=== PATIENT | male | born 1950 | race Caucasian/White ===

== ENCOUNTER → 2017-04-29 07:59 | Outpatient (POV) | payer BC, MEDICARE, SELFPAY | PROVIDERS: Visit Provider Dentist | DX: Z00.00 Encounter for general adult medical examination without abnormal findings (principal) ==

== ENCOUNTER → 2017-06-10 08:16 | Outpatient (POV) | payer BC, MEDICARE, SELFPAY | PROVIDERS: Visit Provider Dentist | DX: Z00.00 Encounter for general adult medical examination without abnormal findings (principal) ==

== ENCOUNTER → 2017-06-21 08:15 | Outpatient (POV) | payer BC, MEDICARE, SELFPAY | PROVIDERS: Visit Provider Nurse Practitioner Acute Care | DX: Z00.00 Encounter for general adult medical examination without abnormal findings (principal) ==

== ENCOUNTER → 2017-06-30 15:49 | Outpatient (POV) | payer BC, MEDICARE, SELFPAY | DX: Z00.00 Encounter for general adult medical examination without abnormal findings (principal) ==

== ENCOUNTER → 2017-10-21 10:41 | Outpatient (POV) | payer BC, MEDICARE, SELFPAY | PROVIDERS: Visit Provider Dermatology | DX: Z00.00 Encounter for general adult medical examination without abnormal findings (principal) ==

== ENCOUNTER → 2017-11-24 15:55 | Outpatient (POV) | payer BC, MEDICARE, SELFPAY | DX: Z00.00 Encounter for general adult medical examination without abnormal findings (principal) ==

== ENCOUNTER → 2017-12-29 16:19 | Outpatient (POV) | payer BC, MEDICARE, SELFPAY | DX: Z00.00 Encounter for general adult medical examination without abnormal findings (principal) ==

== ENCOUNTER → 2017-12-30 09:30 | Outpatient (CLI) | payer BC, MEDICARE, SELFPAY ==
--- NOTE | 2017-12-30 | CI_ITS ---
Cerebrovascular Exam IMPRESSIONS 1. The bilateral vertebral arteries are patent with normal antegrade flow. 2. Study suggests less than 20% stenosis involving the right internal carotid artery and the left internal carotid artery. No change from the study of 01-Oct-2011. History: Risk factors: Hypertension. Hyperlipidemia. Scotoma. Carotid duplex study. Complete study and Doppler flow study including spectral analysis, color and de luna scale imaging. Height: Height: 177.8cm. Height: 70in. Weight: Weight: 85.3kg. Weight: 187.6lb. Body mass index: BMI: 27kg/m^2. Body surface area: BSA: 2.07m^2. Location: Vascular laboratory. Patient status: Outpatient. Tables: Arterial flow: + +--------+--------+ Location V sys V ed + +--------+--------+ Right CCA - proximal 133cm/s 24.4cm/s + +--------+--------+ Right CCA - distal 119cm/s 22.8cm/s + +--------+--------+ Right ECA 118cm/s -------- + +--------+--------+ Right ICA - proximal 65.4cm/s 16.3cm/s + +--------+--------+ Right ICA - mid 83cm/s 26.4cm/s + +--------+--------+ Right ICA - distal 64.8cm/s 18.2cm/s + +--------+--------+ Right vertebral 64.9cm/s -------- + +--------+--------+ Left CCA - proximal 113cm/s 16.8cm/s + +--------+--------+ Left CCA - distal 123cm/s 25.1cm/s + +--------+--------+ Left ECA 122cm/s -------- + +--------+--------+ Left ICA - proximal 91.5cm/s 29.3cm/s + +--------+--------+ Left ICA - mid 91.5cm/s 25.1cm/s + +--------+--------+ Left ICA - distal 91.3cm/s 26.6cm/s + +--------+--------+ Left vertebral 55.4cm/s -------- + +--------+--------+ Velocity ratios: + + + + + + Right, V sys Right, V ed Left, V sys Left, V ed + + + + + + Max ICA/dist CCA 0.7 1.16 0.74 1.17 + + + + + + (Report amended ) Electronically signed by: Tito Lei [id number]
== END ==
PROVIDERS: PCP Family Medicine; Visit Provider Family Medicine
DX: R42 Dizziness and giddiness (principal); I11.9 Hypertensive heart disease without heart failure
CPT/HCPCS: 93880

== ENCOUNTER → 2018-07-13 17:27 | Outpatient (POV) | payer BC, MEDICARE, SELFPAY | DX: Z00.00 Encounter for general adult medical examination without abnormal findings (principal) ==

== ENCOUNTER → 2019-01-26 08:56 | Outpatient (POV) | payer BC, MEDICARE, SELFPAY | PROVIDERS: Visit Provider Dentist | DX: Z00.00 Encounter for general adult medical examination without abnormal findings (principal) ==

== ENCOUNTER → 2019-03-27 08:10 | Outpatient (POV) | payer BC, MEDICARE, SELFPAY | PROVIDERS: Visit Provider Nurse Practitioner Family | DX: Z00.00 Encounter for general adult medical examination without abnormal findings (principal) ==

== ENCOUNTER → 2019-03-28 08:07 | Outpatient (POV) | payer BC, MEDICARE, SELFPAY | PROVIDERS: Visit Provider Dermatology | DX: Z00.00 Encounter for general adult medical examination without abnormal findings (principal) ==

== ENCOUNTER → 2019-09-26 10:16 | Outpatient (CLI) | payer BC, SELFPAY ==
--- NOTE | 2019-09-26 10:24 | US_ITS ---
PROCEDURE: US KIDNEY CLINICAL INDICATION: HTN COMPARISON: [facility] CT CHEST W/O CONTRAST from 05/11/2013 FINDINGS: The right kidney is 12 x 6 x 6 cm. No hydronephrosis. There are 2 right renal cyst 1 in the lower pole at 4 cm the other in the mid polar region at 1.7 cm. The left kidney is 11 x 6 x 5 cm. No cyst or hydronephrosis. No obvious mass. There may be some cortical scarring along the lower pole of the left kidney. IMPRESSION: No hydronephrosis. Benign-appearing right renal cyst. Possible mild cortical scarring along the lower pole of the left kidney Dictated by: Tito Lei MD 09/26/2019 11:25 Electronically signed by Tito Lei MD in [place] 09/26/2019 11:25
--- NOTE | 2019-09-26 10:24 | US_ITS ---
PROCEDURE: US THYROID CLINICAL INDICATION: GOITER COMPARISON: THY US THYROID from 04/10/2016 FINDINGS: Right lobe: Right lobe is 4.7 x 2 x 1.5 cm. There is a 4 mm hypoechoic nodule in the mid aspect of the right lobe medially. Previously 6 mm. In the lower pole there is a well-circumscribed 10 mm hypoechoic nodule which is unchanged Left lobe: 4.1 x 1.6 x 1.4 cm. There is a vague 4 mm hypoechoic nodule in the mid aspect of the left lobe unchanged. A 4 mm hypoechoic nodule noted in the mid polar region unchanged Isthmus: Unremarkable Additional findings: No new nodules evident IMPRESSION: Enlarged thyroid gland with bilateral stable nodules. Dictated by: Tito Lei MD 09/27/2019 11:56 Electronically signed by Tito Lei MD in [place] 09/27/2019 11:56
== END ==
PROVIDERS: PCP Family Medicine; Visit Provider Nurse Practitioner Family
DX: E04.9 Nontoxic goiter, unspecified (principal); I10 Essential (primary) hypertension
CPT/HCPCS: 76536; 76770

== ENCOUNTER → 2019-11-30 14:06 | Outpatient (CLI) | payer BC, SELFPAY ==
--- NOTE | 2019-11-30 14:18 | ECG_ITS ---
APPROVED REPORT Exam: Resting ECG HR:62 bpm ECG Measurements Heart Rate 62 AXES MN 172 P 37 QRSd 94 QRS 62 QT 408 T 50 QTc 414 <Conclusion> Normal sinus rhythm Normal ECG Electronically signed by : Alvino De La Torre, 12/01/2019 07:51:51
== END ==
PROVIDERS: PCP Family Medicine; Visit Provider Physician Assistant
DX: I49.49 Other premature depolarization (principal)
CPT/HCPCS: 93005

== ENCOUNTER → 2019-12-21 10:01 | Outpatient (CLI) | payer BC, SELFPAY ==
[2019-12-21 12:02] LABS: Anion Gap 13.1 mEq/L (5-15); Blood Urea Nitrogen 15 mg/dl (9-20); Calcium 9.2 mg/dl (8.4-10.2); Carbon Dioxide 29 mmol/L (22.0-30.0); Chloride 99 mmol/L (98-107); Estimated Glomerular Filt Rate 60 ml/min (>60); GFR (African American) 73 ML/MIN (>60); Glucose 115 mg/dl (74-100); Potassium 4.1 mmoL/L (3.5-5.1); Sodium 137 mmol/L (136-145)
[2019-12-21 12:11] LABS: NT Pro Brain Natriuretic Pep. 78.1 pg/mL (0-125)
== END ==
PROVIDERS: PCP Family Medicine; Visit Provider Internal Medicine Cardiovascular Disease
DX: R06.00 Dyspnea, unspecified (principal); R07.89 Other chest pain; R00.2 Palpitations; I10 Essential (primary) hypertension; I25.10 Atherosclerotic heart disease of native coronary artery without angina pectoris; R40.0 Somnolence; E78.5 Hyperlipidemia, unspecified; I49.9 Cardiac arrhythmia, unspecified
CPT/HCPCS: 36415; 80048; 83880; G0399

== ENCOUNTER → 2019-12-28 07:49 | Outpatient (CLI) | payer BC, SELFPAY ==
--- NOTE | 2019-12-28 | CA_ITS ---
APPROVED REPORT EXAM: Comprehensive 2D, Doppler, and color-flow Echocardiogram Magazine Filler: Alicia Tellez CRT Ht: 5 ft 10 in Wt: 192lbs BSA: 2.05 BP: 145/86 mmHg Indications: Chest Pain, Palpitations, Fatigue, CAD, Hyperlipidemia, Hypertension/HDD 2D Dimensions LVOT 1.84 cm (M/F) 1.5-2.5 M-Mode Dimensions RVDd 2.84 cm (0.9-2.6) LVDd 4.43 cm (3.5-5.7) LVDs 2.99 cm (3.5-5.7) IVSd 1.25 cm (0.6-1.1) PWd 1.10 cm (0.6-1.1) EF (Teich) 61.10% FS 32.50% EDV (Teich) 89.10 mL ESV (Teich) 34.70 mL LV Diastology E/A Ratio 1.17 Mitral Valve MV A Velocity 79.00 (40-130 cm/s) Left Ventricle Left atrium is qualitatively mildly enlarged, left ventricle is normal size, mild qualitative concentric left ventricular hypertrophy, visually estimated ejection fraction of 55% with no regional wall motion abnormality. Grade 1 diastolic dysfunction seen with tissue Doppler evidence of raise left atrial pressure. Right Ventricle Right atrium is normal size, right ventricle is mildly enlarged with normal contractility. Aortic Valve Aortic valve is minimally thickened and fibrosed, there is no aortic stenosis or aortic insufficiency. Mitral Valve Mitral valve is grossly normal, there is mild mitral regurgitation. Tricuspid Valve Tricuspid valve grossly normal, there is mild tricuspid regurgitation, tricuspid regurgitation jet velocity is inadequate for calculation of the right ventricular systolic pressure, inferior vena cava is not well-visualized. Pulmonic Valve Pulmonic valve is poorly visualized. Great Vessels Aortic root is normal size. Pericardium No significant pericardial effusion noted. Conclusion 1. Mildly enlarged left atrium, normal left ventricular size, mild concentric left ventricular hypertrophy, visually estimated ejection fraction 55% with no regional wall motion abnormality, seen with tissue Doppler evidence of raise left atrial pressure. 2. Mildly enlarged right ventricle with normal contractility. 3. Mild mitral and tricuspid regurgitation, tricuspid regurgitation jet velocity is inadequate for calculation of the right ventricular systolic pressure. Inferior vena cava is not well visualized. 4. No significant pericardial effusion noted. Electronically signed by : Sharif Izquierdo, 12/28/2019 13:58:38
== END ==
PROVIDERS: PCP Family Medicine; Visit Provider Internal Medicine Cardiovascular Disease
DX: I25.10 Atherosclerotic heart disease of native coronary artery without angina pectoris (principal); R42 Dizziness and giddiness; R00.2 Palpitations; I10 Essential (primary) hypertension
CPT/HCPCS: 93225; 93306

== ENCOUNTER 2020-05-03 06:51 | Day surgery (SDC) | payer BC, SELFPAY ==
[2020-05-03] VITALS (8 sets, daily range): BP systolic 121–154; BP diastolic 66–86; PULSE 59–69; RESP 18; TEMP 36.3–36.6; O2SAT 92–97; BMI 27.6
--- NOTE | 2020-05-03 08:04 | P.PN_ITS ---
[facility] Anesthesia Checklist - Patient Identification Patient Identification: Arm Band - Structural Data Admitted From: Home Planned Operative Procedure/s: egd Consent for Planned Operative Procedure(s) Verified: Yes Verified Documents: Surgical Consent, History and Physical - NPO Status Verified Time NPO: 00:00 - Additional verifications Anesthesia Reactions: No - Airway Assessment C-Spine Mobility Assessed: Yes (mp2) TMJ Mobility Assessed: Yes Dentition: Good Dentition - Neurological Assessment Level of Consciousness: Awake, Alert - Anesthesia Plan Anesthesia Risk discussed: Yes Anesthesia Plan: Verified ASA Class: III Anesthesia Type: MAC [facility] History I have reviewed the patient's past medical history: Yes Medical History: Reports:: Arrhythmia, Coronary Artery Disease, Gastroesophageal Reflux Disease(GERD), Hyperlipidemia, Hypertension Denies:: Cancer, Diabetes Mellitus Type 1, Diabetes Mellitus Type 2, MRSA, Seizures *Have you ever received a pneumonia vaccine?: Yes *Have you received a flu vaccine this season?: Yes Other Medical History: Reports: Thyroid Disease, Other Anesthesia experience/problems:: nac Laterality Cases: Bilateral: Tonsillectomy Other Surgeries: Yes: Appendectomy, Cardiac Catheterization, Cholecystectomy, Other Amputation: No Fractures: No - *Social History Last grade of school completed: Advanced degree Smoking Status: Never smoker Alcohol Intake: never Alcohol Intake Frequency:: a few times a week Substance Use Type: denies use *Occupational Status:: employed Housing: house Household Members: spouse *Travel in the last 8 weeks: None Family Hx:: Coronary Artery Disease, Stroke, Hyperlipidemia
--- NOTE | 2020-05-03 08:09 | HMH.PROC ---
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 The patient's last EGD in March 2017 showed the short segment Green's esophagus (Stapleton classification C1M2). Distal esophageal biopsies for Green's confirmed histologic intestinal metaplasia but no dysplasia. His GERD symptoms are controlled well by Esomeprazole. He does get some intermittent bloating and indigestion. He reports no heartburn, dysphagia or unintentional weight loss. Procedure: Prior to the procedure, a history and physical exam was performed, and patient's medications and allergies were reviewed. The risks, benefits and alternatives of the sedation and procedure were discussed with the patient. All questions were answered and informed consent was obtained. The patient was brought to the procedure room. Patient identification and proposed procedure were verified by the physician and the nurse. The patient was placed in a left lateral decubitus position and the scope was passed under direct vision. Throughout the procedure, the patient's blood pressure, pulse, and oxygen saturations were monitored continuously. The upper GI endoscopy was accomplished without difficulty. The patient tolerated the procedure well. Findings: The scope was passed directly into the upper esophagus and advanced to the third portion of the duodenum. The post bulbar duodenum and duodenal bulb were normal with normal mucosa and conniventes. The scope was withdrawn through a normal duodenal bulb and pylorus into the stomach. There was some bile reflux with mild linear reactive gastropathy of the antrum and body. The remainder of the antrum, body and fundus of the stomach were grossly normal. Upon retroflexion there was a small 1 to 2 cm sliding hiatal hernia. 2 biopsies were taken in the antrum and along the lesser curvature for histology to rule out gastritis and/or H pylori. The scope was then withdrawn into the esophagus. There was one larger tongue of salmon-colored mucosa and a smaller tongue of salmon-colored mucosa consistent with short segment Green's esophagus the largest tongue was 2.5 cm length. Narrowband imaging did not show evidence of glandular dysplasia and for direct did biopsies were taken to rule out dysplasia. There was no evidence of reflux esophagitis. Stapleton classification remains C1M2. The remainder of the esophageal mucosa was normal. Impression: 1. Short segment Green's esophagus (Stapleton classification C1M2)?no NBI evidence of dysplasia follow-up biopsies Plan: I would recommend continued esomeprazole as maintenance therapy for complicated GERD (Green's esophagus). I would recommend repeat surveillance upper endoscopy again in 3 years.
--- NOTE | 2020-05-03 09:25 | PC.NURSE ---
PT ADVISED OF POST OP ACTIVITY, NO DRIVING AND NO WORKING TODAY, PT VERBALIZED UNDERSTANDING. PT WANTED TAKEN TO OFFICE, TRANSPORTED VIA W/C. OFFICE STAFF AWARE OF PT STATUS AND SIGNED OUT.
== END 2020-05-03 09:30 | disposition home or self-care (01) ==
LOC: OUTP 06:53
PROVIDERS: PCP Family Medicine; Visit Provider Internal Medicine Gastroenterology
PROC: 0DJ08ZZ Inspection of Upper Intestinal Tract, Via Natural or Artificial Opening Endoscopic (ICD-10-PCS; CPT 43235; principal; 2020-05-03 08:00)
DX: K22.70 Barrett's esophagus without dysplasia (principal); K21.9 Gastro-esophageal reflux disease without esophagitis; E78.5 Hyperlipidemia, unspecified; I10 Essential (primary) hypertension; I49.9 Cardiac arrhythmia, unspecified; I25.10 Atherosclerotic heart disease of native coronary artery without angina pectoris; Z90.49 Acquired absence of other specified parts of digestive tract; Z88.0 Allergy status to penicillin; Z88.9 Allergy status to unspecified drugs, medicaments and biological substances; Z79.899 Other long term (current) drug therapy; G47.33 Obstructive sleep apnea (adult) (pediatric)
CPT/HCPCS: 43239; 88305

== ENCOUNTER → 2020-12-03 07:24 | Outpatient (CLI) | payer OTHER, SELFPAY ==
--- NOTE | 2020-12-03 07:28 | CA_ITS ---
APPROVED REPORT Bilateral Lower Extremity Venous Study for DVT. Contact Lens Blocker And Cutter: LUIS Indications Lower Extremity Pain: Left Lower Extremity Edema: Left Patient states he recently traveled via airplane for an extended perod of time. Pain and edema since that time in the LLE. Recent COVID infection. Multiple varicosities noted in LLE per patient. Risk Factors Recent Travel Vein Imaging CFV (L): compressive, spontaneous, phasic, augmentation FEM (L): compressive, spontaneous, phasic, augmentation POP (L): compressive, spontaneous, phasic, augmentation PTV (L): Compressible GSV (L): compressive, spontaneous, phasic, augmentation SSV (L): Thrombus, Partially Compressible Peroneals (L):Compressible GAS (L): Findings No evidence of DVT in the veins scanned of the left lower extremity. SVT seen in LSV of the LLE. Conclusion No evidence of DVT in the veins scanned of the left lower extremity. SVT seen in the smaller saphenous of the LLE. Electronically signed by : Tito Lei MD 12/03/2020 08:55:52
== END ==
PROVIDERS: PCP Family Medicine; Visit Provider Family Medicine
DX: M79.662 Pain in left lower leg (principal); M79.661 Pain in right lower leg
CPT/HCPCS: 93971

== ENCOUNTER → 2021-02-23 13:03 | Outpatient (CLI) | payer OTHER, SELFPAY ==
[2021-02-23 13:33] LABS: Coronavirus 19, PCR Not Detected (NotDetected); Influenza A, PCR Not Detected (NotDetected); Influenza B, PCR Not Detected (NotDetected)
== END ==
PROVIDERS: Visit Provider Nurse Practitioner Family
DX: Z20.822 Contact with and (suspected) exposure to COVID-19 (principal)
CPT/HCPCS: C9803; U0003; U0005

== ENCOUNTER → 2021-02-26 10:16 | Outpatient (CLI) | payer OTHER, SELFPAY ==
[2021-02-26 10:58] LABS: Coronavirus 19, PCR Not Detected (NotDetected); Influenza A, PCR Not Detected (NotDetected); Influenza B, PCR Not Detected (NotDetected)
== END ==
PROVIDERS: PCP Family Medicine; Visit Provider Family Medicine
DX: Z20.822 Contact with and (suspected) exposure to COVID-19 (principal)
CPT/HCPCS: C9803; U0003; U0005

== ENCOUNTER → 2021-04-07 18:25 | Outpatient (CLI) | payer OTHER, SELFPAY ==
[2021-04-07 18:43] LABS: Coronavirus 19, PCR Not Detected (NotDetected); Influenza A, PCR Not Detected (NotDetected); Influenza B, PCR Not Detected (NotDetected)
== END ==
PROVIDERS: PCP Family Medicine; Visit Provider Nurse Practitioner
DX: Z20.822 Contact with and (suspected) exposure to COVID-19 (principal)
CPT/HCPCS: C9803; U0003; U0005

== ENCOUNTER → 2021-10-07 07:58 | Outpatient (POV) | payer OTHER, SELFPAY | PROVIDERS: Visit Provider Dermatology | DX: Z00.00 Encounter for general adult medical examination without abnormal findings (principal) ==

== ENCOUNTER → 2022-01-07 15:39 | Outpatient (CLI) | payer OTHER, SELFPAY ==
[2022-01-07 16:11] LABS: Coronavirus 19, PCR Not Detected (NotDetected); Influenza A, PCR Not Detected (NotDetected); Influenza B, PCR Not Detected (NotDetected)
== END ==
PROVIDERS: PCP Family Medicine; Visit Provider Family Medicine
DX: Z20.822 Contact with and (suspected) exposure to COVID-19 (principal)
CPT/HCPCS: C9803; U0003; U0005

== ENCOUNTER → 2022-01-13 19:07 | Outpatient (CLI) | payer OTHER, SELFPAY ==
--- NOTE | 2022-01-13 19:10 | XR_ITS ---
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 Gradually getting worse. TECHNIQUE: Imaging protocol: Radiologic exam of the chest. Views: 2 views. COMPARISON: CR CXR1 CHEST-PORTABLE 09/20/2016 9:00 PM FINDINGS: Lungs: Unremarkable. No consolidation. Elevated right hemidiaphragm. Pleural spaces: Unremarkable. No pleural effusion. No pneumothorax. Heart/Mediastinum: Unremarkable. No cardiomegaly. Bones/joints: Unremarkable. IMPRESSION: No acute findings.
== END ==
PROVIDERS: PCP Nurse Practitioner; Visit Provider Nurse Practitioner
DX: R05.9 Cough, unspecified (principal)
CPT/HCPCS: 71046

== ENCOUNTER → 2022-01-16 13:00 | Outpatient (CLI) | payer OTHER, SELFPAY | PROVIDERS: PCP Otolaryngology; Visit Provider Otolaryngology | DX: R05.9 Cough, unspecified (principal) | CPT/HCPCS: 87070; 87077 ==

== ENCOUNTER → 2022-03-19 08:38 | Outpatient (CLI) | payer OTHER, SELFPAY ==
--- NOTE | 2022-03-19 08:41 | US_ITS ---
FINAL REPORT CLINICAL HISTORY: GOITER follow up COMPARISON: 09/26/2019 FINDINGS: THYROID ULTRASOUND Sonographic images of the thyroid was obtained. The right lobe of the thyroid measures 5.6 x 2.2 x 2.2 cm. The left lobe of the thyroid measures 4.7 x 2.0 x 1.8 cm. The isthmus measures 4 mm. There is a stable 1.0 cm nodule in the anterior lower pole of the right lobe which is hypoechoic and solid, TI-RADS 4. IMPRESSION: Stable TI-RADS 4 nodule in the right lobe. Follow-up in 1 year. Reviewed, Interpreted and Dictated by Julio C Figueroa MD Transcribed by Trice Epps Authenticated and [facility]
== END ==
PROVIDERS: PCP Family Medicine; Visit Provider Family Medicine
DX: E04.0 Nontoxic diffuse goiter (principal)
CPT/HCPCS: 76536

== ENCOUNTER → 2023-01-13 07:41 | Outpatient (CLI) | payer MEDICARE, OTHER, SELFPAY ==
--- NOTE | 2023-01-13 | CA_ITS ---
APPROVED REPORT EXAM: Comprehensive 2D, Doppler, and color-flow Echocardiogram [employer] Manager: Mirella Elena RVT Ht: 5 ft 10 in Wt: 197lbs BSA: 2.07 BP: 103/71 mmHg Indications: SOA,MURMUR,CAD,PAU,PALPS,FATIGUE,EDEMA,HTN,HLD 2D Dimensions IVSd 0.94 cm M: 0.6-1.2 PWd 1.03 cm M: 0.6 - 1.2 LVDd 2.78 cm M: 4.2 - 5.9 LVOT 2.45 cm (M/F) 1.5-2.5 M-Mode Dimensions RVDd 2.65 cm (0.9-2.6) LA Diam 3.75 cm (1.9-4.0) LVDd 4.39 cm (3.5-5.7) Ao Diam 3.36 cm (2.0-3.7) LVDs 2.46 cm (3.5-5.7) IVSd 0.72 cm (0.6-1.1) PWd 0.76 cm (0.6-1.1) EF (Teich) 75.50% FS 44.00% EDV (Teich) 87.20 mL TAPSE 2.45 (<1.7) ESV (Teich) 21.40 mL LV Diastology E Decel Time 180.00 (160-240 msec) E/A Ratio 1.2 MED E' 10.50 (< 7 cm/sec) E'/MED E' Ratio 9.41 (>14) LAT E' 11.80 (<10 cm/sec) E/LAT E' Ratio 8.37 (>14) Aortic Valve LVOT Max 136.00 (70-110 cm/s) LVOT VTI 31.55 cm AoV Peak Deshawn. 144.00 (50-130 cm/s) AO Peak GR. 8.30 mmHg AO Mean GR. 4.90 (<5 mmHg) AO VTI 33.31 (18-25 cm) YUDELKA (VTI) 4.47 (2.5-4.5 cm2) Mitral Valve MV E Max Deshawn. 99.00 (40-130 cm/s) MV A Velocity 82.00 (40-130 cm/s) E/A Ratio 1.20 MV Decel. Time 180.00 (160-240 ms) MV PHT 53.00 ms Pulmonary Valve PV Peak Velocity 86.00 (50-150 cm/s) Tricuspid Valve TR P. Velocity 196.00 cm/s RAP Estimate 10.00 mmHg RVSP 25.40 mmHg Left Ventricle The left ventricle is normal size. The left ventricular systolic function is normal. The left ventricular ejection fraction is within the normal range. There is normal left ventricular wall thickness. There is normal LV segmental wall motion. The left ventricular diastolic function is normal. LVEF is 60%. Right Ventricle The right ventricle is normal size. The right ventricular systolic function is normal. Atria The left atrium size is normal. The right atrium size is normal. There is no Doppler evidence of interatrial shunt. Aortic Valve The aortic valve is normal in structure. The aortic valve is trileaflet. There is no aortic valvular stenosis. Trace aortic regurgitation. Mitral Valve The mitral valve is normal in structure. No evidence of mitral valve stenosis. Trace mitral regurgitation. Tricuspid Valve The tricuspid valve leaflets are thin and pliable. Trace tricuspid regurgitation. There is insufficient TR jet to estimate RVSP. Pulmonic Valve The pulmonary valve is normal in structure. Trace pulmonic regurgitation. Great Vessels The aortic root is normal in size. The ascending aorta is not well visualized. IVC is normal in size but collapses < 50% with respirophasic variation. RA pressure is estimated at 8 mmHg. Pericardium There is no pericardial effusion. Other Information Study Quality: Adequate Conclusion Normal biventricular systolic function. No significant valvular stenosis or regurgitation. Electronically signed by : Le Rico MD 01/15/2023 19:10:15
== END ==
PROVIDERS: PCP Family Medicine; Visit Provider Internal Medicine
DX: R06.02 Shortness of breath (principal)
CPT/HCPCS: 93306

== ENCOUNTER → 2023-04-01 08:26 | Outpatient (CLI) | payer MEDICARE, OTHER, SELFPAY ==
--- NOTE | 2023-04-01 08:32 | CT_ITS ---
FINAL REPORT TECHNIQUE: After the administration of oral and intravenous contrast, axial images were obtained through the abdomen and pelvis by computed tomography. The study was performed with techniques to keep radiation dose as low as reasonably achievable, (ALARA). Individual dose reduction techniques using automated exposure control or adjustment of mA and/or kV according to the patient's size were employed. CLINICAL HISTORY: .hx diverticulitis, llq pain, COMPARISON: None FINDINGS: Abdomen: There is chronic scarring at the lung bases. The liver parenchyma is homogeneous. The gallbladder is absent. The spleen is unremarkable. There is localized inflammatory reaction involving the tail of the pancreas best seen on images 45 through 49 of series 2. Adrenal glands are unremarkable. There are bilateral parapelvic renal cysts and multiple bilateral benign-appearing renal cysts. Individual cysts measure up to 2.7 cm in diameter. The aorta is normal in caliber. There is no free fluid or adenopathy. Pelvis: The appendix is not identified. There is extensive descending and sigmoid diverticulosis. No evidence of diverticulitis. The urinary bladder is unremarkable. There is no free fluid or adenopathy. IMPRESSION: Extensive descending and sigmoid diverticulosis without evidence of diverticulitis. Bilateral renal cysts. Localized inflammatory reaction involving the tail of the pancreas probably due to localized acute pancreatitis. Please correlate with lab enzyme values. Underlying pancreatic mass not entirely excluded. Follow-up CT in 1 month recommended Reviewed, Interpreted and Dictated by Julio C Figueroa MD Transcribed by Debby Ball Authenticated and [facility]
== END ==
PROVIDERS: PCP Family Medicine; Visit Provider Family Medicine
DX: K57.30 Diverticulosis of large intestine without perforation or abscess without bleeding (principal); R10.32 Left lower quadrant pain; Z87.19 Personal history of other diseases of the digestive system
CPT/HCPCS: 74177; Q9967

== ENCOUNTER 2023-06-16 07:38 | Outpatient (CLI) | payer MEDICARE, OTHER, SELFPAY ==
[2023-06-16 08:00] LABS: Blood Urea Nitrogen 14 mg/dl (9-20); Estimated Glomerular Filt Rate 66 ml/min (>60); GFR (African American) 80 ML/MIN (>60)
--- NOTE | 2023-06-16 08:04 | CT_ITS ---
FINAL REPORT TECHNIQUE: Pre and post contrast images of the abdomen and pelvis were obtained. IV and oral contrast was administered. Coronal reformatted images were also obtained and reviewed.This study was performed with techniques to keep radiation doses as low as reasonably achievable (ALARA). Individualized dose reduction techniques using automated exposure control or adjustment of mA and/or kV according to the patient's size were employed. CLINICAL HISTORY: PANCREATITIS,BLOATING COMPARISON: None FINDINGS: There is atelectasis in the lung bases. The heart is normal in size. The liver is fatty infiltrated without focal hepatic lesion. The gallbladder is absent. The spleen and adrenal glands are without acute abnormality. There is very mild abnormal attenuation adjacent to the tail of the pancreas which could represent mild pancreatitis. There is no evidence of mass or fluid collection. There are bilateral hypodense renal lesions which are likely cyst. There are nonobstructing left renal stones. The abdominal GI tract is without acute abnormality. There is no evidence of small bowel obstruction. There is no ascites or lymphadenopathy. The appendix is not visualized and there are no secondary signs of acute appendicitis. There is diverticulosis without evidence of acute diverticulitis. There is no lymphadenopathy or free fluid. There is no acute osseous abnormality. IMPRESSION: Possibly very mild pancreatitis involving the tail. Nonobstructing left renal stones and bilateral renal cysts. Fatty liver. Reviewed, Interpreted and Dictated by Lizbeth Werner MD Transcribed by Debby Ball Authenticated and [facility]
[2023-06-16] MEDS: SODIUM CHLORIDE 0.9% 10ML SYR (RAD ONLY) 10 ML IV (08:38)
[2023-06-16] MEDS: IOPAMIDOL-370 (76%);100ML BOTTLE 75 ML IV (08:38)
== END 2023-06-16 23:59 ==
LOC: RAD 07:39
PROVIDERS: PCP Family Medicine; Visit Provider Internal Medicine Gastroenterology
DX: K85.90 Acute pancreatitis without necrosis or infection, unspecified (principal); R14.0 Abdominal distension (gaseous)
CPT/HCPCS: 36415; 74170; 82565; 84520; Q9967

== ENCOUNTER 2024-02-03 07:21 | Outpatient (CLI) | payer MEDICARE, OTHER, SELFPAY ==
--- NOTE | 2024-02-03 07:21 | MR_ITS ---
PROCEDURE INFORMATION: Exam: MR Abdomen Without and With Contrast Exam date and time: 02/03/2024 7:45 AM Age: 73 years old Clinical indication: Abdominal pain; Additional info: Chronic pancreatitis-tail of pancreas TECHNIQUE: Imaging protocol: Magnetic resonance imaging of the abdomen without and with contrast. Contrast material: PROHANCE; Contrast volume: 17 ml; Contrast route: IV; COMPARISON: CT ABDOMEN WO/W CON 06/16/2023 8:19 AM FINDINGS: Lungs: Lung bases are clear. Diaphragm: Right hemidiaphragm is elevated. Liver: Normal-size and morphology of the liver. No focal lesion. Mild steatosis. No appreciable intra or extrahepatic biliary dilatation. Gallbladder and biliary ducts: Status post cholecystectomy. Pancreas: Pancreas appears normal in morphology. No ductal dilatation. There is a benign appearing cyst at the pancreatic tail measuring approximately 7 x 15 mm axial. No associated nodularity, septation, or abnormal postcontrast enhancement. No other appreciable pancreatic lesion is identified. No appreciable peripancreatic inflammatory change. Spleen: Unremarkable. No splenomegaly. Adrenal glands: Unremarkable. No mass. Kidneys: Benign bilateral renal cysts (including parapelvic). Stomach and bowel: Imaged bowel and mesentery are unremarkable. Intraperitoneal space: No free fluid. Vasculature: No abdominal aortic aneurysm. Lymph nodes: No enlarged nodes. Bones/joints: See Soft tissues finding. Soft tissues: No acute osseous or soft tissue abnormality. IMPRESSION: 1. Pancreas appears normal in morphology. No ductal dilatation. There is a benign appearing cyst at the pancreatic tail measuring approximately 7 x 15 mm axial. No associated nodularity, septation, or abnormal postcontrast enhancement. No other appreciable pancreatic lesion is identified. No appreciable peripancreatic inflammatory change. 2. Imaged bowel and mesentery are unremarkable. COMMENTS: Consistent with the [employer]'s Incidental Findings Committee white paper (J Am Marisa Radiol 2018): Any incidental renal lesion less than 1 cm or classified as too small to characterize, or any incidental cystic renal lesion characterized as simple-appearing, is likely benign. No follow-up imaging is recommended for these lesions per consensus recommendations based on imaging criteria.
[2024-02-03] MEDS: 0.9 % SODIUM CHLORIDE 50 ML VIAL 20 ML IV (09:04)
[2024-02-03] MEDS: GADOTERIDOL INJ 20ML SYRINGE 17 ML IV (09:04)
[2024-02-03] MEDS: SODIUM CHLORIDE 0.9% 10ML SYR (RAD ONLY) 10 ML IV (09:04)
== END 2024-02-03 23:59 | disposition home or self-care (01) ==
LOC: RAD 07:21
PROVIDERS: PCP Family Medicine; Visit Provider Internal Medicine Gastroenterology
DX: K86.1 Other chronic pancreatitis (principal); K86.9 Disease of pancreas, unspecified
CPT/HCPCS: 74183; A9576

== ENCOUNTER 2024-05-04 06:37 | Day surgery (SDC) | payer MEDICARE, OTHER, SELFPAY ==
[2024-05-03 10:38] VITALS: BMI 28.3
[2024-05-04 07:10] VITALS: BP 134/89; PULSE 70; RESP 18; TEMP 36.2; O2SAT 98
[2024-05-04] MEDS: LACTATED RINGERS 1000ML 1,000 ML 25 ML IV (07:32)
--- NOTE | 2024-05-04 07:48 | EXP.ANES.CKL ---
[facility] Disclaimer: The information contained in this section may have been updated after the patient was seen, as this information can be updated by other users. Medical History Macular degeneration History of left heart catheterization (LHC) Hyperlipidemia Hypertension Dyspnea PAU (obstructive sleep apnea) Surgical History H/O colonoscopy History of esophagogastroduodenoscopy (EGD) H/O umbilical hernia repair H/O left inguinal hernia repair History of appendectomy History of cholecystectomy Family History Other Coronary artery disease Hypertension Stroke Social History Smoking Status: Never smoker alcohol intake: current alcohol intake frequency: a few times a week substance use type: denies use current occupational status: employed Travel in the last 8 weeks: None household members: spouse housing: house caffeine: Yes Have you lived/traveled outside US in past 30 days?: No Contact w/someone who lives/traveled outside US past 30 days?: No Exposure to someone with infectious disease in past 14 days?: No Do you have a fever (greater than 100.4 F or 38 C)?: No Have you tested positive for COVID-19: Yes Exposed to someone with COVID-19 in past 14 days?: No Do you have a sore throat?: No Do you have a cough?: No Do you have any weakness?: No Are you experiencing any nausea/vomitting?: No Do you have any diarrhea?: No Are you experiencing any unusual bleeding?: No Do you have any muscle aches/pain?: No Do you have any abdominal pain?: No Are you experiencing loss of taste or smell?: No [facility] Anesthesia Checklist Patient Identification Patient Identification: Arm Band and Verbal (Name & ) Structural Data Admitted From: Home Planned Operative Procedure/s: EGD/Colonoscopy Consent for Planned Operative Procedure(s) Verified: Yes Verified Documents: Surgical Consent and History and Physical NPO Status Verified Time NPO: 00:00 Additional verifications Anesthesia Reactions: No Airway Assessment Mallampati Score:: Class I C-Spine Mobility Assessed: Yes TMJ Mobility Assessed: Yes Dentition: Good Dentition Neurological Assessment Level of Consciousness: Awake Hx Seizures: No Numbness or tingling in extremities: No Anesthesia Plan Anesthesia Risk discussed: Yes Anesthesia Plan: Verified ASA Class: II Anesthesia Type: MAC
--- NOTE | 2024-05-04 07:59 | P.HP_ITS ---
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 The patient's last colonoscopy was in 2013. He had a negative Cologuard 3 years ago. He does have a history of pancreatitis. The patient is here for surveillance EGD and colonoscopy. The examination is deemed medically necessary for EGD/colonoscopy. The patient has been seen, interviewed and examined prior to the procedure by both myself and the anesthesia provider. [facility] Disclaimer: The information contained in this section may have been updated after the patient was seen, as this information can be updated by other users. Medical History Macular degeneration History of left heart catheterization (LHC) Hyperlipidemia Hypertension Dyspnea PAU (obstructive sleep apnea) Surgical History H/O colonoscopy History of esophagogastroduodenoscopy (EGD) H/O umbilical hernia repair H/O left inguinal hernia repair History of appendectomy History of cholecystectomy Family History Other Coronary artery disease Hypertension Stroke Social History Smoking Status: Never smoker alcohol intake: current alcohol intake frequency: a few times a week substance use type: denies use current occupational status: employed Travel in the last 8 weeks: None household members: spouse housing: house caffeine: Yes Have you lived/traveled outside US in past 30 days?: No Contact w/someone who lives/traveled outside US past 30 days?: No Exposure to someone with infectious disease in past 14 days?: No Do you have a fever (greater than 100.4 F or 38 C)?: No Have you tested positive for COVID-19: Yes Exposed to someone with COVID-19 in past 14 days?: No Do you have a sore throat?: No Do you have a cough?: No Do you have any weakness?: No Are you experiencing any nausea/vomitting?: No Do you have any diarrhea?: No Are you experiencing any unusual bleeding?: No Do you have any muscle aches/pain?: No Do you have any abdominal pain?: No Are you experiencing loss of taste or smell?: No Other Medical History Have you received the Flu Vaccine for this season: Yes Have you received the Pneumonia Vaccine: Yes Review of Systems Review of Systems Review of systems (narrative): Negative *Cardiovascular Comments: Negative *Gastrointestinal Comments: Negative *Genitourinary Comments: Negative *Musculoskeletal Comments: Negative *Neurologic Comments: Negative Meds Home Medications and Allergies Home Medications ?Medication ?Instructions ?Recorded ?Confirmed ?Type carvedilol 25 mg tablet 25 mg PO BID BP 12/14/19 05/04/24 History cholecalciferol (vitamin D3) 25 2,000 mcg PO DAILY Supplement 12/14/19 05/04/24 History mcg (1,000 unit) capsule esomeprazole magnesium 40 mg 40 mg PO DAILY ACID REFLUX 12/14/19 05/04/24 History capsule,delayed release vitamins A,C,D-dpay-kezvuh 4,296 1 cap PO BID SUPPLEMENT EYES 12/14/19 05/04/24 History mcg-226 mg-90 mg capsule (ICaps AREDS) albuterol sulfate 90 mcg/actuation 2 puff inhalation Q6H PRN SOA 01/04/20 05/04/24 History aerosol inhaler (Ventolin HFA) fluticasone propionate 50 1 spray intranasal DAILY ALLERGIES 01/04/20 05/04/24 History mcg/actuation nasal spray,suspension (Flonase Allergy Relief) minoxidil 5 % topical foam 1 % topical DAILY * 01/04/20 05/04/24 History rosuvastatin 40 mg tablet 40 mg PO DAILY 02/20/21 05/04/24 History potassium 99 mg tablet 99 mg PO BID 07/11/21 05/04/24 History finasteride 1 mg tablet 1 mg PO DAILY 11/12/21 05/04/24 History Bifidobacterium infantis 4 mg 4 mg PO DAILY PRN PROBIOTIC 02/20/22 05/04/24 History capsule (Align (B.infantis)) magnesium oxide 250 mg PO DAILY 03/31/23 05/04/24 History mecobalamin (vitamin B12) 1,000 2,000 mcg PO DAILY Supplement 03/31/23 05/04/24 History mcg chewable tablet coenzyme Q10 200 mg capsule 200 mg PO DAILY 01/19/24 05/04/24 History valsartan 320 1 tab PO DAILY 05/03/24 05/04/24 History mg-hydrochlorothiazide 25 mg tablet New Prescriptions to Start Prescriptions: Allergies Allergy/AdvReac Type Severity Reaction Status Date / Time penicillin G Allergy Unknown Hives Verified 05/04/24 07:01 Horse Serum Proteins Allergy Unknown Hives Uncoded 05/03/24 11:05 Exam Data for Last 24 hours Vital signs and Labs for Last 24 Hours: Temp Pulse Resp BP Pulse Ox O2 Del Method 97.1 F L 70 18 134/89 98 Room Air 05/04/24 07:10 05/04/24 07:10 05/04/24 07:10 05/04/24 07:10 05/04/24 07:10 05/04/24 07:10 I & O for Last 24 hours: Intake & Output 05/01/24 05/02/24 05/03/24 05/04/24 23:59 23:59 23:59 23:59 Weight 197 lb *Routine HEENT Exam Head: Present normocephalic Eye: Present EOMI and PERRL ENT: Present mucous membranes moist *Routine Neck Exam Neck: Present supple *Routine Respiratory Exam Respiratory: Present CTA bilaterally *Routine Cardiovascular Exam Cardiovascular: Present RRR *Routine Abdominal Exam Abdominal: Present soft and normoactive bowel sounds; Absent tenderness *Routine Rectal Exam Rectal:: deferred *Routine Genitalia Exam Genitalia:: deferred *Routine Extremities Exam Extremities: Absent cyanosis, clubbing or edema *Routine Skin Exam Skin: Present warm; Absent rash *Routine Neurological Exam Neurological: Present alert and oriented X3 Assessment and Plan *Assessment and plan (1) Screening for colon cancer: Status: Acute Category: Medical Code(s): Z12.11 - Encounter for screening for malignant neoplasm of colon (2) Short-segment Green's esophagus: Status: Acute Category: Medical Code(s): K22.70 - Green's esophagus without dysplasia Plan A/P: 1. History of Green's esophagus and screening for colon cancer is the preprocedural diagnosis. The patient will be anesthetized/sedated using MAC sedation. The patient has been seen and examined. Cardiac and lung assessment prior to the examination is stable. Proceed with planned EGD and colonoscopy
[2024-05-04 08:04] VITALS: O2SAT 98
--- NOTE | 2024-05-04 08:05 | P.PCN_ITS ---
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 His EGD in April 2020 revealed short segment Green's esophagus. The patient does take esomeprazole 40 mg p.o. daily. He reports no significant heartburn, reflux, dysphagia or dyspepsia. Procedure: Prior to the procedure, a history and physical exam was performed, and patient's medications and allergies were reviewed. The risks, benefits and alternatives of the sedation and procedure were discussed with the patient. All questions were answered and informed consent was obtained. The patient was brought to the procedure room. Patient identification and proposed procedure were verified by the physician and the nurse. The patient was placed in a left lateral decubitus position and the scope was passed under direct vision. Throughout the procedure, the patient's blood pressure, pulse, and oxygen saturations were monitored continuously. The upper GI endoscopy was accomplished without difficulty. The patient tolerated the procedure well. Findings: The scope was passed directly into the upper esophagus and advanced to the third portion of the duodenum. The post bulbar duodenum and duodenal bulb were normal with normal mucosa and conniventes. The ampulla was examined and was normal in appearance with a small periampullary diverticulum. There was some mild nodularity in the duodenal bulb (Vanesa's gland hypertrophy) and a single biopsy was obtained. The scope was withdrawn through a normal pylorus into the stomach. There was some very mild linear gastropathy of the antrum. There was very mild chronic gastritis of the body and fundus. Cold biopsies were obtained from the lesser curvature to rule out H. pylori. Upon retroflexion there was a very small sliding 1 to 2 cm hiatal hernia. The scope was then withdrawn into the esophagus. There was a short tongue (2 to 3 cm) of salmon-colored mucosa consistent with short segment Green's esophagus with 1 small island of Green's as well. These were biopsied and narrowband imaging was utilized and there was no evidence of any dysplasia by NBI. The remainder of the esophageal mucosa was normal. There were 2 smaller proximal esophageal inlet patches in the proximal esophagus. Impression: 1. Small proximal esophageal inlet patches x 2 2. Short segment Green's esophagus (2 to 3 cm tongue) status post directed biopsies using NBI 3. Nonerosive GERD with small 1 to 2 cm hiatal hernia 4. Mild gastropathy and mild chronic gastritis 5. Small periampullary duodenal diverticulum Plan: I will follow-up the biopsies and proceed with screening colonoscopy. I would continue esomeprazole. I would recommend repeat surveillance EGD again in 3 to 5 years.
--- NOTE | 2024-05-04 08:17 | HMH.PROCNOTE ---
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 The patient's last colonoscopy was in 2013 (Dr. Gasper Santamaria). He had a negative Cologuard 3 years ago. He does get frequent hemorrhoidal prolapse and hemorrhoid bleeding. He reports some left-sided abdominal discomfort and does have a history of localized pancreatitis in the tail of the pancreas. He also has a history of diverticulosis. He reports no weight loss or family history of colon cancer. Procedure: Prior to the procedure, a history and physical exam was performed, and patient's medications and allergies were reviewed. The risks, benefits and alternatives of the sedation and procedure were discussed with the patient. All questions were answered and informed consent was obtained. The patient was brought to the procedure room. Patient identification and proposed procedure were verified by the physician and the nurse. The patient was placed in a left lateral decubitus position and the scope was passed under direct vision. Throughout the procedure, the patient's blood pressure, pulse, and oxygen saturations were monitored continuously. The colonoscopy was accomplished without difficulty. The patient tolerated the procedure well. Findings: On digital rectal examination there was normal rectal tone. There was a larger anterior asked internal tag and there was some internal hemorrhoid prolapse. The prostate was 2+, smooth, soft, symmetric without nodules. The colonoscope was introduced through the anal canal to the rectum and advanced to the cecum. The ileocecal valve and appendiceal orifice were identified. The scope was advanced a short distance into the ileum which appeared grossly normal. The scope was then withdrawn into the colon. There were 5 polyps (appendiceal orifice (4 mm), ascending x 1 (5 mm), transverse x 1 (4 mm) and sigmoid x 2 (4 and 5 mm)). These were all removed via cold snare polypectomy. The remaining cecum, ascending and transverse colon and mucosa were grossly normal. There were extensively scattered larg[place] diverticuli throughout the descending and sigmoid colon (LEFT colon). The rectum itself was normal. Upon retroflexion within the rectum there were grade 2-3 internal hemorrhoids. 2 columns of hemorrhoids were banded using 2 bands with excellent ligation effect the preparation was excellent throughout with Tracy Preparation Score of 9. The cecal time was 16 minutes. Impression: 1. Diminutive colonic polyps x 5 2. Extensive left-sided diverticulosis 3. Grade 2-3 internal hemorrhoids status post band ligation x 2 Plan: I will follow-up the polyp histology and recommend repeat surveillance colonoscopy again in 3 to 5 years based upon the pathology. I would encourage psyllium bulking fiber supplementation on a long-term daily maintenance basis.
[2024-05-04 08:45] VITALS: BP 93/53; PULSE 65; RESP 16; TEMP 36.4; O2SAT 94
[2024-05-04 08:55] VITALS: BP 99/53; PULSE 63; RESP 16; O2SAT 94
[2024-05-04 09:05] VITALS: BP 110/62; PULSE 63; RESP 16; O2SAT 96
[2024-05-04 09:15] VITALS: BP 119/70; PULSE 65; RESP 16; O2SAT 97
== END 2024-05-04 09:17 | disposition home or self-care (01) ==
PROVIDERS: PCP Family Medicine; Visit Provider Internal Medicine Gastroenterology
PROC: 0DJ08ZZ Inspection of Upper Intestinal Tract, Via Natural or Artificial Opening Endoscopic (ICD-10-PCS; CPT 45378; principal; 2024-05-04 08:00)
DX: K22.70 Barrett's esophagus without dysplasia (principal); Z12.11 Encounter for screening for malignant neoplasm of colon; Q39.8 Other congenital malformations of esophagus; K21.9 Gastro-esophageal reflux disease without esophagitis; K44.9 Diaphragmatic hernia without obstruction or gangrene; K31.9 Disease of stomach and duodenum, unspecified; K29.70 Gastritis, unspecified, without bleeding; K57.10 Diverticulosis of small intestine without perforation or abscess without bleeding; K63.5 Polyp of colon; K57.30 Diverticulosis of large intestine without perforation or abscess without bleeding; K64.8 Other hemorrhoids
CPT/HCPCS: 43239; 45385; 45398; C1889; J7120

== ENCOUNTER 2024-12-13 10:56 | Outpatient (CLI) | payer MEDICARE, OTHER, SELFPAY ==
--- NOTE | 2024-12-13 11:00 | CA_ITS ---
APPROVED REPORT EXAM: Comprehensive 2D, Doppler, and color-flow Echocardiogram Component Engineer: Charlene Thorne RT(R) Ht: 5 ft 10 in Wt: 200lbs BSA: 2.09 BP: 142/78 mmHg Indications: dyspnea 2D Dimensions Left Atrium 3.36 cm M: 3.0 - 4.0 LVEF (Lott's) 48.70 % M: 52 - 72 LVOT 2.01 cm (M/F) 1.5-2.5 LV Volume 94.80 mL M: 62 - 150 LV Volume Index 45.4 mL/m2 M: 34 - 74 LA Volume 21.10 mL LA Volume Index 10.10 mL/m2 (M/F) 16-34 EF AP4 49.00 % EF AP2 43.2 % EF BP 48.7 % GL Strain -13.8 % M-Mode Dimensions RVDd 2.19 cm (0.9-2.6) LVDd 5.69 cm (3.5-5.7) Ao Diam 3.23 cm (2.0-3.7) LVDs 2.69 cm (3.5-5.7) IVSd 0.98 cm (0.6-1.1) PWd 0.72 cm (0.6-1.1) EF (Teich) 83.20% FS 52.70% EDV (Teich) 159.40 mL ESV (Teich) 26.80 mL LV Diastology E Decel Time 208 (160-240 msec) E/A Ratio 0.9 MED E' 8.9 (>= 7 cm/sec) E'/MED E' Ratio 7.12 (<= 14) LAT E' 10.2 (>= 10 cm/sec) E/LAT E' Ratio 6.22 (<= 14) Mitral Valve MV E Max Deshawn. 63.0 (40-130 cm/s) MV A Velocity 71.0 (40-130 cm/s) E/A Ratio 0.90 MV Decel. Time 208 (160-240 ms) Left Ventricle The left ventricle is normal size. Left ventricular systolic function is normal. The left ventricular ejection fraction is within the normal range. There is normal left ventricular wall thickness. There is normal LV segmental wall motion. The left ventricular diastolic function is normal. LVEF is 55% Right Ventricle The right ventricle is normal size. The right ventricular systolic function is normal. Atria The left atrium size is normal. The right atrium size is normal. There is no color Doppler evidence of interatrial shunt. Aortic Valve The aortic valve is mildly thickened. There is no hemodynamically significant aortic valvular stenosis. No aortic regurgitation is present. Mitral Valve The mitral valve is normal in structure. No evidence of mitral valve stenosis. Trace mitral regurgitation is present. Tricuspid Valve The tricuspid valve leaflets are thin and pliable. Trace tricuspid regurgitation. RVSP is 20-25 mmHg. Pulmonic Valve The pulmonary valve is grossly normal in structure. Trace pulmonic valve regurgitation is present. Great Vessels The aortic root is normal in size. IVC is normal in size and collapses >50% with inspiration. Pericardium There is no pericardial effusion. Other Information Study Quality: Fair Conclusion Normal biventricular systolic function. No significant valvular stenosis or regurgitation. Electronically signed by : Le Rico MD 12/13/2024 11:47:23
--- OUTSIDE RECORDS SUMMARY | 2024-12-13 11:05 | XMS_ITS | Clinical Summary ---
Author Organization Healthcare Address [address] [place] [address] Care Team Providers Care Rad Tech Name Role Phone Unavailable Primary Care Provider Unavailabl e Social History Tobacco Use Types Packs/Day Years Used Date Smoking Tobacco: Never Assessed Sex and Gender Information Value Date Recorded Sex Assigned at Not on file Legal Sex Male 6:19 PM EDT Gender Identity Not on file Sexual Orientation Not on file Last Filed Vital Signs Vital Sign Reading Time Taken Comments Blood Pressure - - Pulse - - Temperature - - Respiratory Rate - - Oxygen Saturation - - Inhaled Oxygen Concentration - - Weight 88.9 kg (196 lb 0.2 oz) 05/10/2013 2:04 P M EST Height 177.8 cm (5' 10 ) 05/10/2013 2:04 PM EST Body Mass Index 28.12 05/10/2013 2:04 PM EST Plan of Treatment Not on file
== END 2024-12-13 23:59 | disposition home or self-care (01) ==
LOC: RT 10:57
PROVIDERS: PCP Family Medicine; Visit Provider Internal Medicine
DX: I51.89 Other ill-defined heart diseases (principal)
CPT/HCPCS: 93306

== ENCOUNTER 2024-12-14 07:40 | Outpatient (CLI) | payer MEDICARE, OTHER, SELFPAY ==
--- OUTSIDE RECORDS SUMMARY | 2024-12-14 07:46 | XMS_ITS | Clinical Summary ---
Author Organization Healthcare Address [address] [place] [address] Care Team Providers Care It Analyst Name Role Phone Unavailable Primary Care Provider [...]
--- OUTSIDE RECORDS SUMMARY | 2024-12-14 07:46 | XMS_ITS ---
Author Organization Unknown Medications Date Medication Dosage DosageUnit StartDate StopDate StopReason Active DoseQuantity DoseUnit Dispense DispenseUnit Refills NdcCode DrugCode PharmacyId IsPrescription MappedMedication Srcstatus Custom 04/26 00:00 :00 Albuterol Sulfate HFA 108 (90 Base) MCG/ACT Aerosol Solution 1 18 Gram 4 [id number] 968 Start 04/26 00:00 :00 Albuterol Sulfate HFA 108 (90 Base) MCG/ACT Aerosol Solution 0 18 Gram 0 [id number] 1 968 Stop 01/03 00:00 :00 Albuterol Sulfate HFA 108 (90 Base) MCG/ACT Aerosol Solution 1 18 Gram 0 [id number] 1 968 Taking 01/03 00:00 :00 Carvedilol 25 mg Tablet 1 180 Tablet 3 [id number] 505 Taking 11/11 00:00 :00 Carvedilol 25 mg Tablet 1 180 Tablet 3 [id number] 505 Start 11/11 00:00 :00 Carvedilol 25 mg Tablet 0 60 Tablet 1 6 [id number] 505 Stop 01/03 00:00 :00 Clindamycin HCl 300 MG Capsule 1 Takin g 01/03 00:00 :00 Clindamycin HCl 300 MG Capsule 06/01/2022 00:00:00 0 40 1 [id number] 9 461 P Not Taking 01/03 00:00 :00 CoQ-10 100 MG Capsule 1 [id number] 286 Taking 01/03 00:00 :00 Doxycycline Monohydrate 100 MG Capsule 02/15/2023 00:00:00 1 14 Capsule 0 [id number] 014 P Taking 01/03 00:00 :00 Esomeprazol e Magnesium 40 mg Capsule Delayed Release 1 90 Capsule 3 [id number] 590 Taking 11/11 00:00 :00 Esomeprazol e Magnesium 40 mg Capsule Delayed Release 1 90 Capsule 3 [id number] 590 Start 11/11 00:00 :00 Esomeprazol e Magnesium 40 mg Capsule Delayed Release 0 30 Capsule 1 [id number] 590 Stop 02/21 00:00 :00 Finasteride 1 mg Tablet 1 90 3 [id number] 92 790 P Unknown Status 02/17 00:00 :00 Finasteride 1 mg Tablet 1 30 Tablet 6 6 [id number] 790 Start 02/17 00:00 :00 Finasteride 1 MG Tablet 0 30 6 [id number] 08 910 Stop 01/03 00:00 :00 Finasteride 1 MG Tablet 1 30 6 [id number] 08 910 Taking 01/03 00:00 :00 Fluticasone Propionate 50 MCG/ACT Suspension 1 [id number] 7 099 Taking 01/03 00:00 :00 Jardiance 10 MG Tablet 0 [id number] 5 207 Not Taking 01/03 00:00 :00 Lucentis 6 MG/ML SOLUTION 0 Not Taking 01/03 00:00 :00 Minoxidil 5 % Solution 1 Taking 01/03 00:00 :00 PreserVisio n AREDS - Tablet 1 [id number] 043 262 Taking 01/03 00:00 :00 Rosuvastati n Calcium 40 mg Tablet 1 90 Tablet 3 [id number] 599 Taking 11/11 00:00 :00 Rosuvastati n Calcium 40 mg Tablet 1 90 Tablet 3 [id number] 599 Start 11/11 00:00 :00 Rosuvastati n Calcium 40 mg Tablet 0 30 Tablet 1 [id number] 599 Stop 01/03 00:00 :00 Tretinoin 0.025 % Cream 10/03/2021 00:00:00 1 20 grams 1 [id number] 08 220 P Taking 01/03 00:00 :00 Valsartan-h ydroCHLOROt hiazide 320-25 MG Tablet 1 90 Tablet 3 [id number] 810 Taking 11/11 00:00 :00 Valsartan-h ydroCHLOROt hiazide 320-25 MG Tablet 1 90 Tablet 3 [id number] 810 Start 11/11 00:00 :00 Valsartan-h ydroCHLOROt hiazide 320-25 MG Tablet 0 30 Tablet 1 [id number] 810 Stop 01/03 00:00 :00 Vitamin B-12 1000 MCG Tablet 1 [id number] 601 Taking 01/03 00:00 :00 Vitamin D3 50 MCG (1999) Tablet 1 [id number] 840 Taking
[2024-12-14 08:15] LABS: Hematocrit 38.3 % (42.0-52.0); Hemoglobin 11.7 g/dL (14.1-18.0); Immature Granulocytes % 0.3 %; Mean Corpuscular HGB Conc 30.5 g/dL (31.8-35.4); Mean Corpuscular Hemoglobin 23.6 pg (27.0-31.2); Mean Corpuscular Volume 77.4 fl (80-94); Nucleated Red Blood Cells % 0 %; Platelet Count 208 K/mm3 (142-424); Red Blood Count 4.95 M/mm3 (4.60-6.20); Red Cell Distribution Width-SD 48.6 fL; White Blood Count 3.6 K/mm3 (4.8-10.8)
[2024-12-14 08:50] LABS: Albumin Level 4.2 g/dl (3.5-5.0); Chloride 106 mmol/L (98-107); Potassium 4.1 mmoL/L (3.5-5.1); Sodium 139 mmol/L (136-145)
[2024-12-14 08:52] LABS: Blood Urea Nitrogen 16 mg/dl (9-20); Creatinine,Serum 1.00 mg/dl (0.66-1.25); Estimated Glomerular Filt Rate 73 ml/min (>60); GFR (African American) 88 ML/MIN (>60)
[2024-12-14 08:53] LABS: Alanine Aminotransferase 27 U/L (12-78); Albumin/Globulin Ratio 1.8 (1.1-1.8); Alkaline Phosphatase 58 U/L (38-126); Anion Gap 10.1 mEq/L (5-15); Aspartate Amino Transferase 34 U/L (17-59); Bilirubin,Total 1.0 mg/dl (0.2-1.3); Calcium 9.1 mg/dl (8.4-10.2); Carbon Dioxide 27 mmol/L (22.0-30.0); Cholesterol 129 mg/dl (140-200); Globulin 2.4 g/dL (1.3-3.2); Glucose 120 mg/dl (74-100); HDL Cholesterol 41 mg/dl (40-60); Total Protein,Serum 6.6 g/dl (6.3-8.2); Triglycerides 188 mg/dl (30-150)
[2024-12-14 09:24] LABS: Thyroid Stimulating Hormone 1.60 uIU/mL (0.465-4.68)
[2024-12-15 09:22] LABS: Iron 48 ug/dL (49-181)
[2024-12-15 09:31] LABS: Reticulocyte % (Auto) 1.9 % (0.9-3.2)
[2024-12-15 09:32] LABS: Total Iron Binding Capacity 413 ug/dL (261-462)
[2024-12-15 10:13] LABS: Vitamin B12 524 pg/mL (239-931)
== END 2024-12-14 23:59 | disposition home or self-care (01) ==
LOC: RT 07:44
PROVIDERS: PCP Family Medicine; Visit Provider Internal Medicine
DX: I49.1 Atrial premature depolarization (principal); I47.19 Other supraventricular tachycardia; I49.3 Ventricular premature depolarization; I25.10 Atherosclerotic heart disease of native coronary artery without angina pectoris; Z12.5 Encounter for screening for malignant neoplasm of prostate; D64.9 Anemia, unspecified; I08.1 Rheumatic disorders of both mitral and tricuspid valves; I11.9 Hypertensive heart disease without heart failure; R60.9 Edema, unspecified
CPT/HCPCS: 36415; 80053; 80061; 82607; 83540; 83550; 84443; 85025; 85044; 93270; G0103

== ENCOUNTER 2024-12-21 06:08 | Outpatient (CLI) | payer MEDICARE, OTHER, SELFPAY ==
--- NOTE | 2024-12-21 | CA_ITS ---
APPROVED REPORT Exam: Exercise Treadmill Technologist: Obdulia Nguyen Ht: 5 ft 10 in Wt: 200 lbs BSA: 2.09 m2 Medical History Medications: Albuterol, Carvedilol, Vitamin B-12, D3, Coenzyme Q10, Esomeprazole magnesium, Finasteride, Flonase, Magnesium Oxide, Minoxidil 5%, Potassium, Rosuvstatin, Valsartan-HCTZ. Stress Test Details Test: Exercise stress testing was performed using a Aden protocol. HR Resting HR: 61 bpm Max Heart Rate (APMHR): 146.395001 bpm Max HR Achieved: 104 bpm Target HR (85% APMHR): 124.804687 bpm % of APMHR: 71.23 Recovery HR: 76 bpm BP Resting BP: 163.0/76.0 mmHg Max BP: 198.0/82.0 mmHg Recovery BP: 166.0/82.0 mmHg ECG Resting ECG: SR -PAC Clinical Highest Stage Achieved: III Stress ECG Conclusion Lungs CTA prior to test. Injected @ 81% MPHR due to dyspnea-test stopped @ 8:43. Max HR: 121 % of 82% Max BP: 198/82 METs: 10.3 Symptoms: Dyspnea. Arrhythmias/Ectopy: PAC. ST-T Changes: Less than 0.5mm upsloping ST segment changes. Conclusion: Normal ECG stress -DTS=+8. Electronically signed by : Le Rico MD 12/21/2024 12:29:31
--- OUTSIDE RECORDS SUMMARY | 2024-12-21 06:11 | XMS_ITS | Clinical Summary ---
Author Organization Healthcare Address [address] [place] [address] Care Team Providers Care Business Process Associate Name Role Phone Unavailable Primary Care Provider [...]
--- NOTE | 2024-12-21 06:30 | NM_ITS ---
APPROVED REPORT Exam: Nuclear Stress Test Indication: soa..palpitations..fatigue Patient Location: Outpatient Stress Tech: Obdulia Green DE Tech:Lisset Paz MARILIN RT(R)(N) Ht: 5 ft 10 in Wt: 197 lbs HR: 61 bpm BP: 163/76 mmHg BSA: 2.07 m2 TID: 1.02 BMI: 28.2 History: soa..palpitations..fatigue Procedure: Patient exercised on Aden protocol 8:43 minutes and sec, resting heart rate 61 bpm, resting blood pressure 163/76 mmHg, with exercise maximum heart rate achived was 121 bpm which is 82 % of the maximum predicted heart rate and blood pressure was 160/90 mmHg. Test was stopped due to fatigue. Patient denied any complaint of chest pain. Patient has average exercise capacity, achieved 10.3 METs of workload on treadmill, the blood pressure response to exercise was normal. Cardiac Stress and Resting SPECT Images: Cardiac Stress and Resting SPECT images were obtained using technetium 99m Myoview 30.1 mCi stress and 10.64 mCi at rest. Resting and stress imaging in supine and prone positions demonstrate no evidence of fixed or reversible perfusion defects. Gated imaging demonstrates normal global and regional LV systolic function. LVEF is completed at 61%. Conclusion: No evidence of fixed or reversible perfusion defects. Gated imaging demonstrates normal global and regional LV systolic function. LVEF is completed at 61%. Electronically signed by : Le Rico MD 12/21/2024 12:28:40
[2024-12-21 09:12] VITALS: BP 163/76; BP 198/82; PULSE 61; RESP 16
[2024-12-21] MEDS: ISOTOPE MYOVIEW (PER STUDY) 1 DOSE IV (09:27)
[2024-12-21] MEDS: SODIUM CHLORIDE 0.9% 10ML SYR (RAD ONLY) 10 ML IV ×2 (09:28)
== END 2024-12-21 23:59 | disposition home or self-care (01) ==
LOC: RAD 06:09
PROVIDERS: PCP Family Medicine; Visit Provider Internal Medicine
DX: I49.1 Atrial premature depolarization (principal); I25.10 Atherosclerotic heart disease of native coronary artery without angina pectoris; I08.1 Rheumatic disorders of both mitral and tricuspid valves
CPT/HCPCS: 78452; 93017; 93018; A9502